=== PATIENT | female | born 1985 | race Caucasian/White ===

== ENCOUNTER 2022-06-19 18:06 | Emergency (ER) | payer OTHER ==
[2022-06-19] MEDS ORDERED: Ketorolac Tromethamine 30 MG/ML VIAL ONE (20:26)
== END 2022-06-19 21:23 | disposition home or self-care (01) ==
LOC: CSHERS 18:06
DX: M79.641 Pain in right hand (principal); M79.642 Pain in left hand; E10.9 Type 1 diabetes mellitus without complications; E03.9 Hypothyroidism, unspecified; Z79.899 Other long term (current) drug therapy
CPT/HCPCS: 96372; 99283; J1885

== ENCOUNTER 2022-06-22 11:11 | Outpatient (CLI) | payer MEDICAID, OTHER | END 2022-06-22 11:12 | disposition home or self-care (01) | LOC: CSHRAD 11:11 | PROVIDERS: ATTEND Nurse Practitioner Pediatrics | DX: J18.9 Pneumonia, unspecified organism (principal) | CPT/HCPCS: 71046 ==